=== PATIENT | male | born 1990 | race African-American/Black ===

== ENCOUNTER 2016-07-13 06:50 | Emergency (ER) | payer OTHER ==
[2016-07-13] MEDS ORDERED: IBUPROFEN 600 MG TABLET ONE (07:23)
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
== END 2016-07-13 08:24 | disposition home or self-care (01) ==
LOC: ED 06:50
DX: M62.838 Other muscle spasm (principal); I10 Essential (primary) hypertension; M79.7 Fibromyalgia; F17.210 Nicotine dependence, cigarettes, uncomplicated; Z79.899 Other long term (current) drug therapy; Z88.8 Allergy status to other drugs, medicaments and biological substances
CPT/HCPCS: 72072; 99283 ×2; A9270

== ENCOUNTER 2016-09-03 18:28 | Emergency (ER) | payer OTHER ==
--- NOTE | 2016-09-03 21:33 | RAD ---
HISTORY: Patient punched wall today. Initial encounter. COMPARISON: None. TECHNIQUE: three view. Wrist Laterality:right FINDINGS: Bones: Post surgical change from prior ORIF at the base of the first metacarpal. Hardware is intact. No fracture or dislocation Joints: Normal Soft tissue: Normal IMPRESSION: No fracture or dislocation. HISTORY: Patient punched a wall. Initial encounter. COMPARISON: 10/26/2015. TECHNIQUE: Three views of the right hand FINDINGS: Bones: No fracture or dislocation. Hardware from prior ORIF at the base of the first metacarpal is intact. Joints: Unremarkable. Soft tissue: Normal. IMPRESSION: No fracture or dislocation. Intact hardware.
== END 2016-09-03 20:54 | disposition home or self-care (01) ==
LOC: ED 18:28
DX: S61.431A Puncture wound without foreign body of right hand, initial encounter (principal); S69.91XA Unspecified injury of right wrist, hand and finger(s), initial encounter; W22.8XXA Striking against or struck by other objects, initial encounter; Y93.83 Activity, rough housing and horseplay; Y92.9 Unspecified place or not applicable